=== PATIENT | male | born 1975 | race Caucasian/White ===

== ENCOUNTER 2021-08-31 10:33 | Emergency (ER) | payer OTHER | END 2021-08-31 17:50 | disposition home or self-care (01) | LOC: FER 10:33 | DX: R07.89 Other chest pain (principal); I10 Essential (primary) hypertension; Z28.310 Unvaccinated for COVID-19; Z79.899 Other long term (current) drug therapy; Z87.891 Personal history of nicotine dependence | CPT/HCPCS: 36415; 84484; 85379; 93005 ==